=== PATIENT | male | born 2005 | race African-American/Black ===

== ENCOUNTER 2025-03-29 12:39 | Emergency (ER) | payer SELFPAY | END 2025-03-29 13:30 | disposition home or self-care (01) | LOC: CSHERS 12:39 | DX: S16.1XXA Strain of muscle, fascia and tendon at neck level, initial encounter (principal); S80.01XA Contusion of right knee, initial encounter; V49.40XA Driver injured in collision with unspecified motor vehicles in traffic accident, initial encounter | CPT/HCPCS: 71045 ==